=== PATIENT | female | born 1965 | race Two or more races ===

== ENCOUNTER → 2017-05-29 | Outpatient (CLI) | payer SELFPAY ==
--- NOTE | 2017-05-30 07:05 | US ---
HISTORY: Left lower quadrant pain Study: Transvaginal pelvic sonography Comparison: None Technique: Multiple grayscale sonographic images were obtained transvaginally. Findings: The uterus measured 4.6 x 3.4 x 5.1 cm. The myometrium is somewhat heterogeneous. There appear to be 2 fibroids present each measuring approximately 2 cm in diameter. The endometrium is not well visuali zed. The right ovary measured 2.2 x 1.9 x 1.1 cm. The left ovary measured 3.6 x 2.4 x 1.8 cm. There i s normal blood flow to the ovaries. There is a 19 mm simple left ovarian cyst present. No adnexal mas ses are identified. No free fluid is noted in the cul-de-sac. IMPRESSION: 1.9 cm simple left ovarian cyst Heterogeneous myometrium with fibroids identified each measuring up maximum 2 cm in diameter. Reported By:
== END | disposition home or self-care (01) | DRG 392 ==
LOC: RAD 09:56
PROVIDERS: ATTEND Physician Assistant
DX: R10.2 Pelvic and perineal pain (principal); N83.292 Other ovarian cyst, left side
CPT/HCPCS: 76830